=== PATIENT | female | born 2000 | race Caucasian/White ===

== ENCOUNTER 2025-04-03 10:10 | Emergency (ER) | payer SELFPAY ==
[2025-04-03 10:19] VITALS: BP 160/107
--- NOTE | 2025-04-03 10:35 | ED.GENMED ---
History of Present Illness
<Rosalina Huffman PA-C - Last Filed: 04/03/25 15:40>
General
Chief Complaint: Crisis Evaluation
Source: patient and police
Exam Limitations: none
Time Seen by Provider: 04/03/25 10:25
Nursing documentation reviewed up to this point in time: agreed with
History of Present Illness
History of Present Illness:
Patient is a 24-year-old female with reported past medical history of bipolar disorder and ADHD, supposed to be on possibly Abilify and gabapentin according to the patient but not compliant with her medications, brought to the emergency department
by police after she was found acting erratically and was unable to care for herself. Patient reports that she stayed in a hotel room last night. She is unsure exactly who paid for it. She reports that she locked herself out of the room this
morning and went down to the front office supervisor to get back in but they would not let her back in. Patient reports that her belongings were in there. According to police, the patient was aggressive with hotel staff. They were called to the scene where
the patient was found to be running across the parking lot without shoes. They were able to obtain the patient's belongings from her hotel room. They report that the patient does have a history of mental health issues and that they have had
interactions with her in the past. They attempted to contact the patient's family including her mother and aunt however no one was willing to accept responsibility for the patient so they brought her to the emergency department for evaluation.
Police are in the process of filing a 302 for inability to care for herself. Patient reports that she is angry because she felt like the police were rude to her. She states that they had her in a room and the 2 police that were there and she was
concerned that they were going to sexually assault her. However, patient denies any sexual assault occurred. Patient admits that she is post to be on medication for her bipolar disorder. She believes she was post to be on gabapentin and Abilify,
cannot recall what else. She admits that she has been without her medication for a prolonged period of time. Patient denies any physical complaints at this time.
Past History
<Rosalina Huffman PA-C - Last Filed: 04/03/25 15:40>
Past History
ED Past Medical History: Psychiatric (bipolar disorder, ADHD)
ED Past Surgical History: None
Social History
Tobacco: Smoker
Alcohol: None
Drug: Other (States she uses drugs, does not want to say which ones, denies IVDU)
Review of Systems
<Rosalina Huffman PA-C - Last Filed: 04/03/25 15:40>
Review of Systems
All Other Systems: Not applicable
Constitutional: Reports no symptoms
EENT: Reports no symptoms
Respiratory: Reports no symptoms
Cardiac: Reports no symptoms
ABD/GI: Reports no symptoms
: Reports no symptoms
Musculoskeletal: Reports no symptoms
Skin: Reports no symptoms
Neurological: Reports no symptoms
Endocrine: Reports no symptoms
Hematologic/Lymphatic: Reports no symptoms
Psychiatric: Reports no symptoms
Phy Exam
<JEFFRY Pantoja Last Filed: 04/03/25 15:40>
General Physical Exam
General Presentation: well appearing and no apparent distress
General Skin: warm and dry
General Habitus: normal
General Mental: alert
General Hydration: appears well hydrated
ENT Exam
ENT Exam: EOMI, pharynx normal, neck supple and normocephalic
Eye Exam
Eye Exam: PERRL, cornea clear and conjunctiva normal
Cardiovascular Exam
Cardiovascular Exam: regular rate/rhythm, no edema, no murmur and normal peripheral pulses
Pulmonary Exam
Pulmonary Exam: lungs clear, no respiratory distress, no rales, no crackles, no rhonchi, no stridor, no wheezing and no cough
Gastrointestinal Exam
Gastrointestinal Exam: normal bowel sounds, non tender, soft, no organomegaly, no pulsatile mass and non distended
Neurological Exam
Neurological Exam: alert, oriented x3, no motor deficits and speech normal
Musculoskeletal Exam
Musculoskeletal Exam: full ROM and no edema
Skin Exam
Skin Exam: normal color, warm/dry, no rash and no petechia
Psychiatric Exam
Psychiatric Exam: agitated and labile
Course
<Rosalina Huffman PA-C - Last Filed: 04/03/25 15:40>
Orders/Labs/Results
Orders:
Orders
04/03/25 10:34
Crisis Consult Urgent
Reason for Consult: 302
04/03/25 12:00
Haloperidol Lactate [Haldol] 5 mg IM NOW STA
04/03/25 12:15
Lorazepam [Ativan] 2 mg .ROUTE .STK-MED ONE
04/03/25 12:28
1:1 Observation - Suicide/ Violent Behavior As Directed
Midazolam HCl [Versed] 2 mg IM NOW STA
Restraints - Violent As Directed
Restraint Type-: Locked-4 point/4 rails
Apply From (date): 04/03/25
Apply from (time): 12:28
Remove (date): 04/03/25
Remove (time): 16:28
04/03/25 12:38
Lorazepam [Ativan] 2 mg IM NOW STA
Vital Signs
Initial and Last Documented VS:
Initial Vital Signs
Pulse Resp Pulse Ox
133 24 99
04/03/25 10:12 04/03/25 10:12 04/03/25 10:12
Last Documented Vital Signs
Pulse Resp BP Pulse Ox
89 13 126/74 100
04/03/25 14:09 04/03/25 14:09 04/03/25 14:09 04/03/25 14:00
<Elmo Sotelo MD - Last Filed: 04/03/25 12:31>
Orders/Labs/Results
Orders:
Orders
04/03/25 10:34
Crisis Consult Urgent
Reason for Consult: 302
04/03/25 12:00
Haloperidol Lactate [Haldol] 5 mg IM NOW STA
04/03/25 12:15
Lorazepam [Ativan] 2 mg .ROUTE .STK-MED ONE
04/03/25 12:28
1:1 Observation - Suicide/ Violent Behavior As Directed
Midazolam HCl [Versed] 2 mg IM NOW STA
Restraints - Violent As Directed
Restraint Type-: Locked-4 point/4 rails
Apply From (date): 04/03/25
Apply from (time): 12:28
Remove (date): 04/03/25
Remove (time): 16:28
04/03/25 12:38
Lorazepam [Ativan] 2 mg IM NOW STA
Vital Signs
Initial and Last Documented VS:
Initial Vital Signs
Pulse Resp Pulse Ox
133 24 99
04/03/25 10:12 04/03/25 10:12 04/03/25 10:12
Last Documented Vital Signs
Pulse Resp BP Pulse Ox
89 13 126/74 100
04/03/25 14:09 04/03/25 14:09 04/03/25 14:09 04/03/25 14:00
<Rosalina Huffman PA-C - Last Filed: 04/03/25 15:40>
*Critical Care Note
Total Time (30-74mins, 75-104mins- exclusive of procedures): Not Applicable
<Rosalina Huffman PA-C - Last Filed: 04/03/25 15:40>
Update Note
Update Note:
24-year-old female with past medical history of bipolar disorder, ADHD, reportedly without her medications for a prolonged period of time brought to the emergency department by police after she was acting aggressively, erratically, and they were
concerned for her inability to care for herself. On arrival, patient is hypertensive, tachycardic, tachypneic but agitated, labile, tearful, normal oxygenation. On examination, patient is intermittently angry and tearful but largely able to be
verbally redirected, she is in no acute distress with a normal cardiopulmonary exam and a benign abdomen. Police are in the process of filing a 302. Will consult crisis in the meantime.
1231PM: Patient has become agitated, verbally aggressive, yelling constantly. Patient having difficulty staying in the stretcher, trying to leave her room. Patient unable to be redirected. Patient given 5mg of IM Haldol, 2mg of IM Ativan.
Patient still agitated, yelling, verbally aggressive, patient placed in 4 point restraints for patient's and staff's safety. Patient seen and evaluated by ED attending. Will give 2mg of midazolam IM and reassess.
1342PM: Patient sleeping comfortably. Patient will require placement.
1538PM: Patient transferred to crisis in stable condition.
ED Attending Note
<Rosalina Huffman PA-C - Last Filed: 04/03/25 15:40>
-
Portions of this chart may have been created with voice recognition software.� Occasional wrong word or��sound alike� substitutions may have occurred due to the inherent limitations of voice recognition software.
<Elmo Sotelo MD - Last Filed: 04/03/25 12:31>
ED Attending Note
Patient seen and examined by attending physician: Yes
I performed the substantive portion of visit, reviewed & personally made and approve the management plan that is documented in note by myself or JARVIS.: Yes
-
Portions of this chart may have been created with voice recognition software.� Occasional wrong word or��sound alike� substitutions may have occurred due to the inherent limitations of voice recognition software.
Patient is a 24-year-old woman with history of bipolar ADHD presenting to the emergency department for crisis evaluation. Patient brought in by police for concern for patient's wellbeing as she was found being aggressive with hotel staff that she
was staying at and found running in the parking lot. They did attempt to call family without any luck so they brought her to the emergency department. They did initiate 302. During my evaluation patient is acutely manic pacing in the room. She
is screaming and agitated. We did try to verbally calm her down however patient still agitated and yelling. Given inability for patient to calm down with verbal de-escalation decision was made to give 5 mg IM Haldol. Unfortunately Haldol did not
calm patient down. Patient was up agitated and pacing the room again and leaving the room. Decision was then made to place patient in 4 point restraints and give Ativan 2 mg IM.
On reevaluation patient still trying to time to get out of restraints screaming agitated in bed. Will give additional IM Versed. Crisis consult pending. Patient will need placement.
Discharge Plan
Departure
Patient Disposition: Psych Facility
Date of Disposition: 04/03/25
Time of Disposition: 13:42
Discharge Problem:
Agitation, Unable to care for self
Referrals:
UNKNOWN,NO INTERVIEW [Family Provider]
Interventions
Interventions:
*Risk Screen - Suicide Last Done: 04/03/25 10:12
*General Assessment Last Done: 04/03/25 10:12
*Neglect/Abuse Screening Last Done: 04/03/25 10:12
*ED- Fall Risk Assessment Last Done: 04/03/25 10:12
*ED COVID-19 Vaccine History Last Done: 04/03/25 10:12
ED-Psychological Assessment Last Done: 04/03/25 10:22
Discharge Date and Time
Print Language: KYRGYZ
[2025-04-03] MEDS: HALDOL 5 MG IM (12:13)
[2025-04-03] MEDS: ATIVAN 2 MG IM (12:30)
[2025-04-03 14:09] VITALS: BP 126/74
--- NOTE | 2025-04-03 14:22 | W.PN.UPDATE ---
Update Note
Progress Note Update
Pt seen for 302 exam; brought in by police for causing a disturbance at a hotel in [place]. Pt reportedly agitated, aggressive verbally, disorganized and talking to self. Police were trying to help her retrieve her belongings, pt reportedly
unable to recall which hotel room. Pt seen resting on stretcher, denies any S/H ideation, states she was not harming or threatening anyone. Pt fearful of the police, states they were trying to take her belongings, states she was afraid she was
being trafficked when being transported by police. Pt was heard screaming earlier, fearful that security guards were 'going to rape me!' Pt reports she is on Abilify and Gabapentin, but unalbe to state who is prescribing her medications. Per
Crisis staff, pt admitted using methamphetamine and cocaine.
Imp: Unspecified Psychotic disorder, R/o substance-induced psychosis. 302 upheld to allow for assessment/observation, due to psychotic state
Rec: continue assessment on 302. Will follow
[2025-04-03 15:00] VITALS: BP 111/64
[2025-04-03 17:01] LABS: HCG, Urine Qualitative Screen Negative
[2025-04-03 17:11] LABS: Amphetamines Positive (Negative); Barbiturates Negative (Negative); Benzodiazepines Positive (Negative); Buprenorphine Negative (Negative); Cocaine Negative (Negative); Methadone Negative (Negative); Methamphetamines Positive (Negative)
[2025-04-03 17:12] LABS: Marijuana Positive (Negative); Opiates Negative (Negative); Phencyclidine Negative (Negative); Tricyclic Antidepressants Negative (Negative)
[2025-04-03 17:27] LABS: Fentanyl, Urine Negative (Negative)
== END 2025-04-04 02:07 ==
LOC: EMR 10:10
PROVIDERS: EMERGENCY PHYSICIAN Student in an Organized Health Care Education/Training Program
DX: R45.1 Restlessness and agitation (principal); F31.9 Bipolar disorder, unspecified; F17.200 Nicotine dependence, unspecified, uncomplicated; Z91.199 Patient's noncompliance with other medical treatment and regimen due to unspecified reason; Z78.1 Physical restraint status; Z74.8 Other problems related to care provider dependency
CPT/HCPCS: 99285; 96372; 80306; 80307; 81025